=== PATIENT | male | born 1950 | race Hispanic/Latino ===

== ENCOUNTER 2019-04-24 09:44 | Inpatient (IN) | payer MEDICARE, OTHER ==
[~2019-04-24] VITALS: Ht 170.2 cm; Wt 79.7 kg
[2019-04-24 10:25] LABS: BASOPHILS % (AUTO) 0.8 % (0.0-5.0); EOSINOPHILS % (AUTO) 3.3 % (0.0-8.0); LYMPHOCYTES % (AUTO) 14.4 % (21.0-51.0); MEAN CORPUSCULAR HEMOGLOBIN 32.8 pg (27.0-33.0); MEAN CORPUSCULAR HGB CONC 34.3 g/dL (32.0-36.0); MEAN CORPUSCULAR VOLUME 95.5 fL (79-99); MONOCYTES % (AUTO) 9.1 % (3.0-13.0); NEUTROPHILS % (AUTO) 72.4 % (40.0-77.0); PLATELET COUNT (AUTO) 82 K/uL (130-400); RED BLOOD CELL COUNT(AUTO) 3.46 MIL/uL (4.50-6.20); RED CELL DISTRIBUTION WIDTH 14.8 % (11.0-15.5); WHITE BLOOD COUNT (AUTO) 5.2 K/uL (4.8-10.8)
[2019-04-24] MEDS ORDERED: LISINOPRIL 5 MG TABLET ONE (10:30)
[2019-04-24] MEDS ORDERED: FUROSEMIDE 10 MG/ML 4ML VIAL ONE (10:31)
[2019-04-24 10:36] LABS: CREATININE 1.6 mg/dL (0.5-1.5); POTASSIUM 4.8 mmol/L (3.5-5.1)
[2019-04-24 10:50] LABS: THYROID STIMULATING HORMONE 18.18 uIU/mL (0.36-3.74)
[2019-04-24 11:00] LABS: B-TYPE NATRIURETIC PEPTIDE 136 pg/mL (0-100)
[2019-04-24 11:35] LABS: PLATELET MORPHOLOGY COMMENT DECREASED
[2019-04-24] MEDS ORDERED: ENOXAPARIN SODIUM 40 MG/0.4 ML SYRINGE SQ ONE (11:42)
[2019-04-24] MEDS ORDERED: GLUCAGON 1MG KIT 1 MG ML IM PRN (13:00)
[2019-04-24] MEDS ORDERED: DEXTROSE 50%-WATER 50 ML DISP.SYRIN IV PRN (13:00)
[2019-04-24 15:17] VITALS: BP 187/102
[2019-04-24] MEDS: FUROSEMIDE 10 MG/ML 4ML VIAL IVP SCH ×2 (15:49→21:33)
[2019-04-24 16:20] VITALS: BP 158/97
[2019-04-24 17:30] LABS: CREATINE KINASE, TOTAL 362 U/L (21-232); MYOGLOBIN 245 ng/mL (10-92); TROPONIN I < 0.04 ng/mL (0.00-0.06)
[2019-04-24 19:25] VITALS: BP 148/93
[2019-04-24] MEDS ORDERED: METF-444 PO (21:16)
[2019-04-24] MEDS: INSULIN R PO SS1 SQ SCH (21:42)
[2019-04-24] MEDS ORDERED: COMPOUND IV REFRIGERATED 1 EACH IVSOLN MISC PRN (21:45)
[2019-04-24] MEDS ORDERED: VANCOMYCIN 1.25 GM in SODIUM CHLORIDE 0.9% 250 ML IV ONE (21:45)
[2019-04-24 22:38] LABS: CREATINE KINASE, TOTAL 354 U/L (21-232); MYOGLOBIN 265 ng/mL (10-92); TROPONIN I < 0.04 ng/mL (0.00-0.06)
[2019-04-24 23:39] VITALS: BP 148/98
--- NOTE | 2019-04-25 | NUR ---
Pt. instructed to be NPO at this time and demonstrated understanding.
[2019-04-25] MEDS: ZOSYN 3.375GM+NS 50ML 50 ML IV SCH ×3 (00:21→16:02)
[2019-04-25 03:47] VITALS: BP 154/89
[2019-04-25] MEDS ORDERED: PHARMACY COMMUNICATION MISC SCH (06:00)
[2019-04-25] MEDS: IPRATROPIUM/ALBUTEROL SULFATE 3 ML SOLUTION IH PRN ×2 (06:28→18:35)
[2019-04-25] MEDS ORDERED: VANCOMYCIN PROTOCOL PER PHARMACY IV SCH (06:30)
[2019-04-25] MEDS: INSULIN R PO SS1 SQ SCH ×4 (06:39→20:40)
[2019-04-25 07:00] VITALS: BP 175/90
[2019-04-25] MEDS: FUROSEMIDE 10 MG/ML 4ML VIAL IVP SCH ×3 (08:21→20:38)
[2019-04-25] MEDS: POTASSIUM CHLORIDE 20 MEQ ERTAB PO SCH ×2 (08:22→20:38)
[2019-04-25] MEDS ORDERED: VANCOMYCIN 1GM+NS 250ML 250 ML IV ONE (09:00)
[2019-04-25] MEDS: LISINOPRIL 20 MG TABLET PO SCH (09:00)
[2019-04-25 11:00] VITALS: BP 160/89
[2019-04-25 12:03] LABS: INR 1.22 (0.85-1.15); PARTIAL THROMBOPLASTIN TIME 34.2 SEC (26.3-35.5); PROTHROMBIN TIME 12.8 SEC (9.6-11.6)
[2019-04-25 12:04] LABS: CREATININE 1.7 mg/dL (0.5-1.5); POTASSIUM 4.7 mmol/L (3.5-5.1)
--- NOTE | 2019-04-25 13:12 | NUR ---
THORACENTESIS PT OFF THE FLOOR FOR THORACENTESIS AT THIS TIME. NURSING WILL CONTINUE TO FOLLOW UP.
--- NOTE | 2019-04-25 15:00 | NUR ---
U/S GD RT LUNG PIGTAIL CATHETER PLACEMENT PROCEDURE PERFORMED BY DR Tigre MASON. PUNCTURE SITE RT LATERAL BACK AND PATIENT TOLERATED PROCEDURE WELL. 10FR PIGTAIL CATHETER PLACED TO RT LUNG AND CONNECTED TO ATRIUM CHAMBER AT WATER SEAL. CATHETER SUTURED IN PLACE AND SECURED WITH STAY-FIX DRESSING. SPECIMEN COLLECTED AND SENT TO LAB. END OF PROCEDURE AT 1425. REPORT GIVEN TO Narcisa ALVAREZ RN AND PATIENT TRANSPORTED TO [facility] VIA BED AT 1500. AAO X3 WITH NO C/O PAIN.
[2019-04-25 15:39] LABS: AMYLASE,BODY FLUID 50 U/L
[2019-04-25 15:42] LABS: CHOLESTEROL,BODY FLUID < 35 mg/dL
[2019-04-25 16:00] VITALS: BP 159/79
[2019-04-25 16:41] LABS: APPEARANCE BODY FLUID CLOUDY (CLEAR); COLOR,BODY FLUID YELLOW (LT YELLOW); SPECIMENTYPE,BODY FLUID THORACENTESIS; TOTAL VOLUME,BODY FLUID 650 mL
[2019-04-25 16:42] LABS: BODY FLUID RBC 1605 /cu. mm.; BODY FLUID WBC 73 /cu. mm.
[2019-04-25 16:50] LABS: BF LYMPHOCYTE 37 %; BF MONOCYTE 16 %; BF OTHER CELLS 4
[2019-04-25 19:11] VITALS: BP 167/79
[2019-04-25] MEDS ORDERED: MORPHINE SULFATE 2 MG/ML 1ML SYG ONE (20:22)
--- NOTE | 2019-04-25 20:25 | NUR ---
DIV[employer]IED [employer] FARM[employer]ER Eunice Meza was called and notified regarding pt. chest tube drainage was 1750 after he went to the restroom .Initial level was @350 level and went to 2,100 ml and pt c/o chestpain.Received new order.Chest tube clamped at this time
[2019-04-25 23:28] VITALS: BP 145/82
[2019-04-26] MEDS: ZOSYN 3.375GM+NS 50ML 50 ML IV SCH ×3 (00:56→18:31)
[2019-04-26 03:55] VITALS: BP 129/74
[2019-04-26 04:24] LABS: BASOPHILS % (AUTO) 1.1 % (0.0-5.0); HEMATOCRIT 29.3 % (42-54); LYMPHOCYTES % (AUTO) 14.8 % (21.0-51.0); MEAN CORPUSCULAR HGB CONC 34.3 g/dL (32.0-36.0); MONOCYTES % (AUTO) 11.2 % (3.0-13.0); NEUTROPHILS % (AUTO) 68.9 % (40.0-77.0); PLATELET COUNT (AUTO) 64 K/uL (130-400); RED BLOOD CELL COUNT(AUTO) 3.05 MIL/uL (4.50-6.20); RED CELL DISTRIBUTION WIDTH 14.7 % (11.0-15.5); WHITE BLOOD COUNT (AUTO) 5.4 K/uL (4.8-10.8)
[2019-04-26 04:52] LABS: ALBUMIN 1.3 g/dL (3.5-5.0); BILIRUBIN,TOTAL 1.1 mg/dL (0.2-1.0); CREATININE 2.1 mg/dL (0.5-1.5); MAGNESIUM 1.5 mg/dL (1.80-2.40); POTASSIUM 3.7 mmol/L (3.5-5.1); TOTAL PROTEIN, SERUM 5.1 g/dL (6.0-8.3)
[2019-04-26] MEDS: INSULIN R PO SS1 SQ SCH ×4 (06:17→21:00)
[2019-04-26 07:00] VITALS: BP 149/79
--- NOTE | 2019-04-26 07:00 | NUR ---
Bedside report given to incoming NOD using SBAr all questions answered.Pigtail chesttube was unclamped at this time. already made rounds this morning and was updated with pt. condition.
[2019-04-26] MEDS: IPRATROPIUM/ALBUTEROL SULFATE 3 ML SOLUTION IH PRN ×2 (07:06→18:43)
[2019-04-26] MEDS: LISINOPRIL 20 MG TABLET PO SCH (08:36)
[2019-04-26] MEDS: POTASSIUM CHLORIDE 20 MEQ ERTAB PO SCH ×2 (08:37→21:38)
[2019-04-26] MEDS ORDERED: FUROSEMIDE 10 MG/ML 4ML VIAL IVP SCH (09:00)
[2019-04-26] MEDS ORDERED: VANCOMYCIN 1.5 GM in SODIUM CHLORIDE 0.9% 250 ML IV SCH (09:00)
[2019-04-26 11:00] VITALS: BP 134/71
--- NOTE | 2019-04-26 15:59 | NUR ---
DC PLAN VISITED WITH PATIENT. PATIENT LIVES WITH SPOUSE. INDEPENDENT ABLE TO PERFORM ADL'S. PATIENT HAS NO SERVICES OR DME'S. FEELS SAFE TO RETURN HOME. Addendum: 04/26/19 at 1600 by CESAR HERNANDEZ RN CM Amended: Links added.
[2019-04-26 16:00] VITALS: BP 123/77
[2019-04-26 19:42] VITALS: BP 146/86
--- NOTE | 2019-04-26 20:49 | NUR ---
CT RESULTS CALLED TO KEIRA HARRELL.
[2019-04-27] VITALS (7 sets, daily range): BP systolic 108–150; BP diastolic 63–90
[2019-04-27] MEDS: ZOSYN 3.375GM+NS 50ML 50 ML IV SCH ×4 (00:16→23:58)
--- NOTE | 2019-04-27 03:00 | NUR ---
Assumed care at this time,pt. with right pigtail chest tube Container #5 .attached to low intermittent suction.As per report pt. developed pneumothorax.Pt. appears calm and comfortable, he verbalized feeling better each day. to bedside.
[2019-04-27 03:55] LABS: BASOPHILS % (AUTO) 1.1 % (0.0-5.0); HEMATOCRIT 29.3 % (42-54); LYMPHOCYTES % (AUTO) 21.2 % (21.0-51.0); MEAN CORPUSCULAR HEMOGLOBIN 33.7 pg (27.0-33.0); MEAN CORPUSCULAR HGB CONC 34.8 g/dL (32.0-36.0); MONOCYTES % (AUTO) 12.6 % (3.0-13.0); NEUTROPHILS % (AUTO) 57.1 % (40.0-77.0); NUCLEATED RED BLOOD CELLS 0.1 % (0.0-0.19); PLATELET COUNT (AUTO) 55 K/uL (130-400); RED BLOOD CELL COUNT(AUTO) 3.02 MIL/uL (4.50-6.20); RED CELL DISTRIBUTION WIDTH 15.1 % (11.0-15.5); WHITE BLOOD COUNT (AUTO) 4.3 K/uL (4.8-10.8)
[2019-04-27 03:57] LABS: CREATININE 2.1 mg/dL (0.5-1.5); POTASSIUM 3.9 mmol/L (3.5-5.1)
[2019-04-27] MEDS: MORPHINE SULFATE 2 MG/ML 1ML SYG IVP PRN (04:47)
--- NOTE | 2019-04-27 05:45 | NUR ---
Patient sitting on chair during shift change. Denies sob.C/o mild discomfort to chest tube site. Denies the need for pain medication. Level 2/10. Changed out atrium and connected to low int suction per MD request. Patient draining serosanguineous fluid. i.s used while sitting. Reached 1000. 2+ pitting edema to BLE. Will continue to monitor. family at bedside
[2019-04-27] MEDS: INSULIN R PO SS1 SQ SCH ×4 (06:21→21:24)
[2019-04-27] MEDS: IPRATROPIUM/ALBUTEROL SULFATE 3 ML SOLUTION IH PRN ×2 (07:28→18:44)
[2019-04-27] MEDS: LISINOPRIL 20 MG TABLET PO SCH (08:33)
[2019-04-27] MEDS: POTASSIUM CHLORIDE 20 MEQ ERTAB PO SCH ×2 (08:34→21:18)
[2019-04-27] MEDS ORDERED: FUROSEMIDE 10 MG/ML 10ML VIAL IVP SCH (09:00)
[2019-04-27] MEDS: VANCOMYCIN 1GM+NS 250ML 250 ML IV SCH (11:59)
[2019-04-27] MEDS: FUROSEMIDE 10 MG/ML 2ML VIAL IVP SCH (21:16)
[2019-04-28] MEDS: MORPHINE SULFATE 2 MG/ML 1ML SYG IVP PRN ×2 (02:11→23:56)
[2019-04-28 03:56] VITALS: BP 111/60
[2019-04-28] MEDS: INSULIN R PO SS1 SQ SCH ×4 (05:54→21:20)
[2019-04-28] MEDS ORDERED: ALBUMIN (HUMAN) 25% 100 ML IV SCH (07:00)
[2019-04-28 07:40] VITALS: BP 135/87
[2019-04-28] MEDS: ZOSYN 3.375GM+NS 50ML 50 ML IV SCH ×3 (10:29→23:53)
[2019-04-28] MEDS: LISINOPRIL 20 MG TABLET PO SCH (10:29)
[2019-04-28] MEDS: POTASSIUM CHLORIDE 20 MEQ ERTAB PO SCH ×2 (10:30→20:02)
[2019-04-28] MEDS: FUROSEMIDE 10 MG/ML 2ML VIAL IVP SCH ×2 (10:30→20:02)
[2019-04-28 11:30] VITALS: BP 140/84
[2019-04-28] MEDS: VANCOMYCIN 1GM+NS 250ML 250 ML IV SCH (13:11)
[2019-04-28] MEDS: MIDODRINE HCL 5 MG TABLET PO SCH ×2 (13:22→20:03)
[2019-04-28] MEDS: OCTREOTIDE ACETATE 100 MCG/ML AMP SQ SCH ×2 (13:56→21:03)
[2019-04-28 15:30] VITALS: BP 157/76
[2019-04-28] MEDS: IPRATROPIUM/ALBUTEROL SULFATE 3 ML SOLUTION IH PRN ×2 (18:40→23:26)
[2019-04-28 19:00] VITALS: BP 153/73
[2019-04-28 23:00] VITALS: BP 117/57
[2019-04-29 03:00] VITALS: BP 114/64
[2019-04-29 03:13] LABS: BASOPHILS % (AUTO) 1.1 % (0.0-5.0); EOSINOPHILS % (AUTO) 9.8 % (0.0-8.0); HEMATOCRIT 28.6 % (42-54); LYMPHOCYTES % (AUTO) 17.5 % (21.0-51.0); MEAN CORPUSCULAR HEMOGLOBIN 33.2 pg (27.0-33.0); MEAN CORPUSCULAR HGB CONC 33.9 g/dL (32.0-36.0); MEAN CORPUSCULAR VOLUME 98.1 fL (79-99); MONOCYTES % (AUTO) 12.5 % (3.0-13.0); NEUTROPHILS % (AUTO) 59.1 % (40.0-77.0); NUCLEATED RED BLOOD CELLS 0.1 % (0.0-0.19); PLATELET COUNT (AUTO) 61 K/uL (130-400); RED BLOOD CELL COUNT(AUTO) 2.92 MIL/uL (4.50-6.20); RED CELL DISTRIBUTION WIDTH 14.9 % (11.0-15.5); WHITE BLOOD COUNT (AUTO) 4.5 K/uL (4.8-10.8)
[2019-04-29 03:28] LABS: CREATININE 2.4 mg/dL (0.5-1.5); MAGNESIUM 1.7 mg/dL (1.80-2.40); PHOSPHORUS 3.9 mg/dL (2.5-4.9); POTASSIUM 4.4 mmol/L (3.5-5.1)
[2019-04-29] MEDS: INSULIN R PO SS1 SQ SCH ×4 (06:26→21:57)
[2019-04-29] MEDS: IPRATROPIUM/ALBUTEROL SULFATE 3 ML SOLUTION IH PRN ×2 (06:26→18:30)
[2019-04-29] MEDS: OCTREOTIDE ACETATE 100 MCG/ML AMP SQ SCH ×3 (06:27→20:51)
[2019-04-29] MEDS: MIDODRINE HCL 5 MG TABLET PO SCH ×3 (06:27→20:50)
[2019-04-29 07:48] VITALS: BP 130/75
[2019-04-29] MEDS: MORPHINE SULFATE 2 MG/ML 1ML SYG IVP PRN (08:19)
[2019-04-29] MEDS: LISINOPRIL 20 MG TABLET PO SCH (08:43)
[2019-04-29] MEDS: FUROSEMIDE 10 MG/ML 2ML VIAL IVP SCH ×2 (08:43→20:50)
[2019-04-29] MEDS: POTASSIUM CHLORIDE 20 MEQ ERTAB PO SCH ×2 (08:44→20:50)
[2019-04-29] MEDS: ZOSYN 3.375GM+NS 50ML 50 ML IV SCH (08:44)
--- NOTE | 2019-04-29 10:43 | NUR ---
09:42- patient is asleep, per family members request to come back tomorrow. Addendum: 04/29/19 at 1045 by IVAN QUINTERO, PT PT Amended: Links added.
[2019-04-29] MEDS ORDERED: ONDANSETRON HCL 4 MG/2 ML VIAL ONE (11:01)
[2019-04-29] MEDS ORDERED: ONDANSETRON HCL 4 MG/2 ML VIAL IVP PRN ×2 (11:15→21:00)
[2019-04-29] MEDS ORDERED: METOCLOPRAMIDE 10 MG/2 ML VIAL IVP PRN (12:00)
[2019-04-29 12:26] VITALS: BP 112/77
[2019-04-29] MEDS ORDERED: MAGNESIUM 2GM PREMIX 50ML 50 ML IV PRN (13:15)
[2019-04-29] MEDS ORDERED: ALBUMIN (HUMAN) 25% 100 ML IV ONE (14:00)
[2019-04-29] MEDS ORDERED: ALBUMIN (HUMAN) 25% 100 ML IV SCH (14:28)
[2019-04-29] MEDS: CEFEPIME HCL 1 GM VIAL IVP SCH (16:30)
[2019-04-29 17:04] VITALS: BP 150/72
[2019-04-29 19:00] VITALS: BP 130/61
[2019-04-29] MEDS: HYDROMORPHONE HCL 0.5 MG/0.5 ML ML IVP PRN (20:51)
[2019-04-29] MEDS ORDERED: VANCOMYCIN 750MG + NS 250 ML IV SCH ×2 (21:00)
[2019-04-29 23:00] VITALS: BP 115/60
[2019-04-30] MEDS: CEFEPIME HCL 1 GM VIAL IVP SCH ×2 (01:02→15:18)
[2019-04-30] MEDS: IPRATROPIUM/ALBUTEROL SULFATE 3 ML SOLUTION IH PRN ×3 (01:09→18:30)
[2019-04-30 03:00] VITALS: BP 138/66
[2019-04-30 04:46] LABS: HEMATOCRIT 27.3 % (42-54); MEAN CORPUSCULAR HEMOGLOBIN 33.2 pg (27.0-33.0); MEAN CORPUSCULAR HGB CONC 33.7 g/dL (32.0-36.0); MEAN CORPUSCULAR VOLUME 98.3 fL (79-99); PLATELET COUNT (AUTO) 57 K/uL (130-400); RED BLOOD CELL COUNT(AUTO) 2.78 MIL/uL (4.50-6.20); WHITE BLOOD COUNT (AUTO) 4.3 K/uL (4.8-10.8)
[2019-04-30 04:59] LABS: ALBUMIN 1.7 g/dL (3.5-5.0); CREATININE 2.7 mg/dL (0.5-1.5); MAGNESIUM 2.2 mg/dL (1.80-2.40); POTASSIUM 5.2 mmol/L (3.5-5.1); TOTAL PROTEIN, SERUM 4.9 g/dL (6.0-8.3)
[2019-04-30] MEDS: OCTREOTIDE ACETATE 100 MCG/ML AMP SQ SCH ×3 (05:07→21:31)
[2019-04-30] MEDS: MIDODRINE HCL 5 MG TABLET PO SCH ×3 (05:07→21:31)
[2019-04-30] MEDS: INSULIN R PO SS1 SQ SCH ×4 (06:16→21:00)
[2019-04-30 07:27] VITALS: BP 158/83
[2019-04-30] MEDS: FUROSEMIDE 10 MG/ML 2ML VIAL IVP SCH ×2 (07:54→21:00)
[2019-04-30] MEDS: POTASSIUM CHLORIDE 20 MEQ ERTAB PO SCH ×2 (07:54→21:00)
--- NOTE | 2019-04-30 08:18 | NUR ---
MD ROUNDS DR. HANCOCK IN TO SEE PATIENT. NEW ORDERS RECEIVED TO BE CARRIED OUT.
[2019-04-30] MEDS: THIAMINE HCL 100 MG TABLET PO SCH (08:23)
[2019-04-30] MEDS: PRENATAL VITAMIN RX TABLET PO SCH (08:23)
--- NOTE | 2019-04-30 09:45 | NUR ---
RECEIVED CALL FROM DR. FERNANDEZ, UPDATED ON CONSULT. STATES WILL REVIEW CHART.
[2019-04-30 11:32] VITALS: BP 140/66
[2019-04-30 15:39] VITALS: BP 145/79
--- NOTE | 2019-04-30 15:39 | NUR ---
RDSCREEN - LOS X 6 Pt tolerating 75gm CCD with no report of GI distress and PO intake at 100%. Pt with lactose intolerance. Pt and family with questions on dietary recommendations. RD discussed Heart Healthy, Diabetic diet. Pt verbalized understanding. Pt LBM 04/29/19. Pt monitored labs: K 5.2, BUN 45, Cr 2.7, GFR 25, Glu 166, Ca 7.2, AST 38, Alb 1.7. RD to continue to monitor. Please notify RD as nutritional concerns arise. Thank you. Addendum: 04/30/19 at [address] Amended: Links added.
[2019-04-30] MEDS: HYDROMORPHONE HCL 0.5 MG/0.5 ML ML IVP PRN (15:52)
--- NOTE | 2019-04-30 16:20 | NUR ---
10 FR. RIGHT LUNG PIGTAIL CATHETER DISCONTINUED INFORMED PATIENT OF PROCEDURE. REMOVED 1 SUTURED FROM SITE, RIGHT LUNG 10 FR. PIGTAIL CATHETER DISCONTINUED PER MD ORDERS. PATIENT TOLERATED WELL. DRESSING APPLIED. NO BLEEDING NOTED. REPORT GIVEN TO JOHN CONRAD RN.
[2019-04-30 20:32] VITALS: BP 143/90
[2019-05-01 00:24] VITALS: BP 179/88
[2019-05-01] MEDS: CEFEPIME HCL 1 GM VIAL IVP SCH ×2 (02:51→15:04)
[2019-05-01 04:55] VITALS: BP 143/72
[2019-05-01] MEDS: INSULIN R PO SS1 SQ SCH ×4 (05:52→21:00)
[2019-05-01] MEDS: OCTREOTIDE ACETATE 100 MCG/ML AMP SQ SCH ×3 (06:30→21:30)
[2019-05-01] MEDS ORDERED: COMPOUND IV MISC 1 EACH IVSOLN MISC PRN (06:45)
[2019-05-01 07:01] LABS: MAGNESIUM 2.1 mg/dL (1.80-2.40); POTASSIUM 4.9 mmol/L (3.5-5.1)
[2019-05-01 07:02] LABS: BILIRUBIN,URINE Negative (NEGATIVE); COLOR,URINE Yellow (YELLOW); GLUCOSE, URINE (UA) Negative (NEGATIVE); KETONES,URINE Negative (NEGATIVE); LEUKOCYTE ESTERASE ,URINE Negative (NEGATIVE); NITRATE,URINE Negative (NEGATIVE); OCCULT BLOOD,URINE Trace (NEGATIVE); PROTEIN,URINE 300 mg/dL (NEGATIVE)
[2019-05-01 07:06] LABS: APPEARANCE,URINE CLEAR (CLEAR)
[2019-05-01 07:15] LABS: BACTERIA,URINE None Seen /HPF (None Seen); RBC,URINE 0-1 /HPF (0-1); SQUAMOUS EPITHELIAL CELL,UR None Seen /HPF (0-2); WBC,URINE None Seen /HPF (0-1)
[2019-05-01 07:39] VITALS: BP 144/78
[2019-05-01] MEDS: MIDODRINE HCL 5 MG TABLET PO SCH (08:31)
[2019-05-01] MEDS: POTASSIUM CHLORIDE 20 MEQ ERTAB PO SCH ×2 (08:31→21:30)
[2019-05-01] MEDS: PRENATAL VITAMIN RX TABLET PO SCH (08:31)
[2019-05-01] MEDS: THIAMINE HCL 100 MG TABLET PO SCH (08:31)
[2019-05-01] MEDS: FUROSEMIDE 10 MG/ML 2ML VIAL IVP SCH ×2 (08:32→21:30)
[2019-05-01] MEDS ORDERED: IRON SUCROSE COMPLEX 100 MG in SODIUM CHLORIDE 0.9% 50 ML IV SCH (09:00)
[2019-05-01 11:36] VITALS: BP 162/86
[2019-05-01 15:11] VITALS: BP 156/87
[2019-05-01 20:12] VITALS: BP 164/78
[2019-05-02 00:05] VITALS: BP 141/89
[2019-05-02] MEDS: CEFEPIME HCL 1 GM VIAL IVP SCH (03:12)
[2019-05-02 03:57] VITALS: BP 156/79
[2019-05-02 04:31] LABS: CREATININE 1.9 mg/dL (0.5-1.5); MAGNESIUM 1.8 mg/dL (1.80-2.40); POTASSIUM 4.7 mmol/L (3.5-5.1)
[2019-05-02] MEDS: OCTREOTIDE ACETATE 100 MCG/ML AMP SQ SCH (05:57)
[2019-05-02] MEDS: INSULIN R PO SS1 SQ SCH (06:01)
[2019-05-02 08:00] VITALS: BP 149/79
--- NOTE | 2019-05-02 08:00 | NUR ---
AM ASSESSMENT PT SITTING IN CHAIR, WATCHING TV. SPOUSE @ BEDSIDE. A/O X 3. NO SOB. NO DISTRESS NOTED. DENIES CHEST PAIN OR DISCOMFORT. DENIES PALPITATIONS. TELE: SR 60-70s. DENIES N/V AND/OR DIARRHEA. UP W/STD BY ASSIST. INSTRUCTED TO CALL FOR ASSISTANCE. CALL ROBERTO W/IN REACH. PENDING TO BE DISCHARGED HOME TODAY.
[2019-05-02] MEDS: POTASSIUM CHLORIDE 20 MEQ ERTAB PO SCH (08:14)
[2019-05-02] MEDS: FUROSEMIDE 10 MG/ML 2ML VIAL IVP SCH (08:14)
[2019-05-02] MEDS: THIAMINE HCL 100 MG TABLET PO SCH (08:14)
[2019-05-02] MEDS: PRENATAL VITAMIN RX TABLET PO SCH (08:14)
--- NOTE | 2019-05-02 10:55 | NUR ---
DISCHARGE VERBAL & WRITTEN DISCHARGE INSTRUCTIONS REVIEWED & GIVEN TO PT & FAMILY. QUESTIONS ENCOURAGED & CLARIFIED. PROPER CARE & MGT OF CHF REVIEWED. PT TO CONTINUE TAKING HOME MEDICATIONS. F/U W/DR WINKLER THIS TUESDAY. TELE ALEC REMOVED. IV DISCONTINUED. PT & FAMILY TO GATHER PERSONAL BELONGINGS. WILL NOTIFY STAFF WHEN READY TO BE TAKEN TO PRIVATE VEHICLE.
--- NOTE | 2019-05-02 11:40 | NUR ---
DISCHARGE PT TAKEN TO PRIVATE VEHICLE VIA WC BY Terry MARTELL PCP, ACCOMPANIED BY FAMILY. NO DISTRESS NOTED.
== END 2019-05-02 11:40 | disposition home or self-care (01) | DRG 432 ==
LOC: EDH 09:44 → EDHIP 10:24 → 2DH 15:27
PROVIDERS: ADMIT Family Medicine; ATTEND Family Medicine
PROC: 0W9930Z Drainage of Right Pleural Cavity with Drainage Device, Percutaneous Approach (ICD-10-PCS; principal; 2019-04-25)
DX: K74.60 Unspecified cirrhosis of liver (principal); J18.1 Lobar pneumonia, unspecified organism; J90 Pleural effusion, not elsewhere classified; R18.8 Other ascites; K76.6 Portal hypertension; N17.9 Acute kidney failure, unspecified; J93.9 Pneumothorax, unspecified; J94.8 Other specified pleural conditions; I35.0 Nonrheumatic aortic (valve) stenosis; E03.9 Hypothyroidism, unspecified; D69.6 Thrombocytopenia, unspecified; N18.3 Chronic kidney disease, stage 3 (moderate); E11.22 Type 2 diabetes mellitus with diabetic chronic kidney disease; I12.9 Hypertensive chronic kidney disease with stage 1 through stage 4 chronic kidney disease, or unspecified chronic kidney disease; M60.9 Myositis, unspecified; D64.9 Anemia, unspecified; D73.1 Hypersplenism; E11.21 Type 2 diabetes mellitus with diabetic nephropathy; E78.5 Hyperlipidemia, unspecified; E87.5 Hyperkalemia; E87.6 Hypokalemia; L89.90 Pressure ulcer of unspecified site, unspecified stage; Z79.4 Long term (current) use of insulin
CPT/HCPCS: 10030; 36415; 71045; 71250; 76700; 76942; 78580; 80048; 80053; 80061; 80202; 81001; 82105; 82150; 82465; 82550; 82570; 82948; 83615; 83735; 83874; 83880; 83986; 84100; 84157; 84439; 84443; 84484; 85025; 85027; 85378; 85610; 85730; 87088; 88108; 88305; 89051; 93005; 93306; 94640; 94664; 97039; A7048; A9540; G0378; J0692; J1170; J1650; J1756; J1815; J1940; J2354; J2405; J2543; J3370; J3475; J7030; J7070; P9046

== ENCOUNTER 2019-07-01 11:21 | Observation (INO) | payer OTHER ==
[~2019-07-01] VITALS: Ht 170.2 cm; Wt 79.5 kg
[~2019-07-01 11:21] MED LIST: METF-444 PO
[2019-07-01 12:55] LABS: BASOPHILS % (AUTO) 1.2 % (0.0-5.0); EOSINOPHILS % (AUTO) 5.2 % (0.0-8.0); HEMATOCRIT 29.1 % (42-54); LYMPHOCYTES % (AUTO) 17.7 % (21.0-51.0); MEAN CORPUSCULAR HGB CONC 34.2 g/dL (32.0-36.0); MEAN CORPUSCULAR VOLUME 99.5 fL (79-99); MONOCYTES % (AUTO) 9.3 % (3.0-13.0); NEUTROPHILS % (AUTO) 66.6 % (40.0-77.0); NUCLEATED RED BLOOD CELLS 0.1 % (0.0-0.19); PLATELET COUNT (AUTO) 56 K/uL (130-400); RED BLOOD CELL COUNT(AUTO) 2.92 MIL/uL (4.50-6.20); RED CELL DISTRIBUTION WIDTH 15.4 % (11.0-15.5); WHITE BLOOD COUNT (AUTO) 3.9 K/uL (4.8-10.8)
[2019-07-01 12:59] LABS: CREATININE 2.6 mg/dL (0.5-1.5); POTASSIUM 4.9 mmol/L (3.5-5.1)
[2019-07-01 13:02] LABS: INR 1.26 (0.85-1.15); PROTHROMBIN TIME 13.1 SEC (9.6-11.6)
[2019-07-01 13:04] LABS: ALBUMIN 1.6 g/dL (3.5-5.0); BILIRUBIN,TOTAL 0.8 mg/dL (0.2-1.0); TOTAL PROTEIN, SERUM 5.6 g/dL (6.0-8.3)
[2019-07-01] MEDS ORDERED: GLUCAGON 1MG KIT 1 MG ML IM PRN (14:45)
[2019-07-01] MEDS ORDERED: DEXTROSE 50%-WATER 50 ML DISP.SYRIN IV PRN (14:45)
[2019-07-01 15:34] VITALS: BP 163/81
--- NOTE | 2019-07-01 15:38 | NUR ---
ARRIVAL TO FLOOR PT IS AAOX4 DENIES CP DENIES SOB AT THIS TIME WHILE AT REST. NO COMPLAINTS. BREATHING PATTERN IS EVEN AND UNLABORED WHILE AT REST. ARRIVED WITH ORDERS, FAMILY IS AT BEDSIDE, CALL LIGHT WITHIN REACH.
[2019-07-01] MEDS ORDERED: FURO40TA7 PO (15:42)
[2019-07-01] MEDS ORDERED: RIFA550T PO (15:42)
[2019-07-01] MEDS ORDERED: CARV25TA PO (15:42)
[2019-07-01] MEDS ORDERED: HYDR-4154 PO (15:42)
[2019-07-01] MEDS ORDERED: BUDE10.2 IH (15:42)
[2019-07-01] MEDS ORDERED: LACT10SO32 PO (15:42)
[2019-07-01] MEDS: CEFTRIAXONE SODIUM 1 GM IVP SCH (16:01)
[2019-07-01] MEDS: FUROSEMIDE 10 MG/ML 2ML VIAL IVP SCH ×3 (16:03→22:35)
--- NOTE | 2019-07-01 16:24 | NUR ---
DR Narcisa CONRAD AWARE OF CONSULT
[2019-07-01] MEDS: INSULIN R PO SS1 SQ SCH ×2 (16:43→22:34)
--- NOTE | 2019-07-01 18:46 | NUR ---
RENAL US AT BEDSIDE
[2019-07-01] MEDS: IPRATROPIUM/ALBUTEROL SULFATE 3 ML SOLUTION IH SCH ×2 (18:49→23:13)
[2019-07-01 20:44] VITALS: BP 131/68
[2019-07-01] MEDS: INSULIN GLARGINE 100 UNITS/ML 10 ML VIAL SQ SCH (20:44)
[2019-07-02] VITALS (16 sets, daily range): BP systolic 99–172; BP diastolic 56–84
--- NOTE | 2019-07-02 03:22 | NUR ---
PATIENT RESTING IN BED. NO C/O SOB AFTER RECEIVING NEB TX. 02 AT 2L, NC. TOLERATING WELL. URINATING WITH THE LASIX. 2+ PITTING EDEMA TO BLE. INCREASED BLOOD SUGARS COVERED USING INSULIN SS.
--- NOTE | 2019-07-02 04:40 | NUR ---
PATIENT STATED HE HAD A HEADACHE AND FELT WEAK. PATIENT SWEATING. S/S OF HYPOGLYCEMIA. BS CHECKED 64. JUICE GIVEN WILL RECHECK BLOOD SUGAR. PATIENT IS ON FLUID RESTRICTION DUE TO EDEMA AND NPO FOR A POSSIBLE PROCEDURE. WILL CONTINUE TO MONITOR
--- NOTE | 2019-07-02 05:53 | NUR ---
BLOOD SUGAR RECHECK BS -91
[2019-07-02] MEDS: INSULIN R PO SS1 SQ SCH (05:54)
[2019-07-02] MEDS: IPRATROPIUM/ALBUTEROL SULFATE 3 ML SOLUTION IH SCH ×3 (06:13→18:05)
--- NOTE | 2019-07-02 07:30 | NUR ---
ASSESSMENT ENCOUNTERED PT A&OX3, CALM COOPERATIVE AND DOES NOT APPEAR TO BE IN ANY DISTRESS NOR ANY NEURO DEFICITS PRESENT. PT DENIES PAIN, SOB, NAUSEA BUT DOES C/O DYSPNEA ON EXERTION. PT IS AMBULATORY,GAIT STEADY AND STRONG WITH STAND BY ASSIST. PT IS PENDING THORACENTESIS BY I.R. CALL LIGHT WITHIN REACH, FAMILY AT BEDSIDE.
--- NOTE | 2019-07-02 08:55 | NUR ---
U/S GD RIGHT THORACENTESIS PROCEDURE PERFORMED BY DR HUGHES. PUNCTURE SITE RIGHT POSTERIOR BACK AND PATIENT TOLERATED PROCEDURE WELL. TOTAL REMOVED 2.0 LITERS OF CLOUDY PETERS FLUID. END OF PROCEDURE AT 0910. CATHETER REMOVED AND DRESSING APPLIED. NO BLEEDING NOTED. POST CHEST X-RAY TAKEN AND READ BY DR HUGHES. NO PNEUMOTHORAX SEEN. CALLED REPORT TO 2ND FLOOR NURSE, AMARILYS MURRAY. TRANSFERRED PATIENT TO ROOM 232 VIA W/C AT 0930. PT STABLE, AAO X3 WITH NO C/O PAIN.
[2019-07-02] MEDS ORDERED: DEXTROSE 50%-WATER 50 ML DISP.SYRIN IV PRN (11:45)
[2019-07-02] MEDS ORDERED: GLUCAGON 1MG KIT 1 MG ML IM PRN (11:45)
[2019-07-02 13:00] LABS: APPEARANCE BODY FLUID SLIGHTLY CLOUDY (CLEAR); COLOR,BODY FLUID YELLOW (LT YELLOW); SPECIMENTYPE,BODY FLUID THORACENTESIS
[2019-07-02 13:01] LABS: TOTAL VOLUME,BODY FLUID 2000 mL
[2019-07-02 13:02] LABS: BODY FLUID RBC 3050 /cu. mm.; BODY FLUID WBC 111 /cu. mm.
[2019-07-02 13:05] LABS: BF EOSINOPHIL 1 %; BF LYMPHOCYTE 49 %; BF MESOTHELIAL 40 %; BF MONOCYTE 6 %
[2019-07-02] MEDS: INSULIN GLARGINE 100 UNITS/ML 10 ML VIAL SQ SCH ×2 (13:05→22:03)
[2019-07-02] MEDS: INSULIN HUMULIN R 100 UNIT/ML 3ML SQ SCH ×2 (13:08→21:00)
[2019-07-02] MEDS: CEFTRIAXONE SODIUM 1 GM IVP SCH (13:10)
[2019-07-02] MEDS: FUROSEMIDE 10 MG/ML 2ML VIAL IVP SCH ×2 (13:10→21:57)
[2019-07-02] MEDS: CARVEDILOL 25 MG TABLET PO SCH ×2 (13:11→20:38)
[2019-07-02] MEDS: HYDRALAZINE HCL 25 MG TABLET PO SCH ×2 (13:11→20:38)
--- NOTE | 2019-07-02 16:19 | NUR ---
RD NOTIFICATION DX: SOB, PLEURAL EFFUSION. DIET: 75GM CCD. PO 100% AND HAS GREAT APPETITE PER PT. SKIN INTACT, 3+ PITTING EDEMA. LBM: 07/02. NO NAUSEA, VOMITING OR DIARRHEA [id number]. PT TOLERATING DIET WELL. KEEPS A LOG OF ALL THE FOODS PT CONSUMES IN ONE DAY. PT IS WILLING TO MAKE LIFESTYLE AND DIET CHANGES TO IMPROVE HIS HEALTH AND FOR HIS FAMILY. WAS NOT PRESENT DURING TIME OF INTERVIEW. PT ASKED IF I CAN COME BACK WHEN IS PRESENT FOR ANY ADDITIONAL QUESTIONS REGARDING HIS DIET THAT SHE MAY HAVE. PT ASKED QUESTIONS AND VERBALIZED UNDERSTANDING. PT WAS LEFT WITH HANDOUTS TO TAKE HOME AND USE REFERENCE. RD RECOMMENDS TO CHANGE DIET ORDER TO RENAL NON-DIALYSIS. OFFER NEPRO ONCE FOR PT TO TRY. RD PROVIDED RENAL NON-DIALYSIS, CIRRHOSIS, DM, FLUID RESTRICTION DIET AND NUTRITION EDUCATION. RD WILL CONTINUE TO MONITOR AND FOLLOW UP NEEDED. THANK YOU. Addendum: 07/02/19 at [address] Amended: Links added.
--- NOTE | 2019-07-02 16:26 | NUR ---
DIET EDUCATION RD PROVIDED RENAL NON-DIALYSIS, DM, CIRRHOSIS, FLUID RESTRICTION DIET AND NUTRITION EDUCATION. PT VERBALIZED UNDERSTANDING AND WAS LEFT WITH HANDOUTS TO TAKE HOME. PT ASKED IF I CAN COME BACK TOMORROW WHEN IS PRESENT TO ANSWER AND QUESTIONS SHE MAY HAVE REGARDING HIS DIET. KEEPS A DIARY OF FOODS PT CONSUMES IN ONE DAY. PT IS WILLING TO MAKE DIET AND LIFESTYLE CHANGES FOR HIS HEALTH AND FOR HIS FAMILY. Addendum: 07/02/19 at [address] Amended: Links added.
[2019-07-02] MEDS ORDERED: ACETAMINOPHEN 325 MG TAB ONE (18:39)
[2019-07-02] MEDS ORDERED: RIFAXIMIN 550 MG TABLET PO SCH (21:00)
[2019-07-02] MEDS ORDERED: THIAMINE HCL 100 MG/ML 2ML VIAL IVP SCH (21:00)
[2019-07-02] MEDS ORDERED: LACTULOSE 20 GM/30 ML UDCUP PO SCH (21:00)
--- NOTE | 2019-07-02 22:40 | NUR ---
PT IV INFILTRATED. REMOVED AT THIS TIME. PT STATES NO DISTRESS. STABLE.
[2019-07-03 03:25] VITALS: BP 131/68
[2019-07-03 04:20] LABS: % IRON SATURATION 23.6 % (30-44)
[2019-07-03 04:31] LABS: THYROID STIMULATING HORMONE 13.74 uIU/mL (0.36-3.74); URIC ACID 9.2 mg/dL (2.6-7.2)
[2019-07-03] MEDS: INSULIN HUMULIN R 100 UNIT/ML 3ML SQ SCH (05:45)
[2019-07-03] MEDS: INSULIN GLARGINE 100 UNITS/ML 10 ML VIAL SQ SCH (06:28)
--- NOTE | 2019-07-03 08:02 | NUR ---
DISCHARGE ENCOUNTERED PT AMBULATING IN ROOM, GAIT STEADY AND STRONG WITH STAND BY ASSIST, ON ROOM AIR, A&OX3, CALM COOPERATIVE AND DOES NOT APPEAR TO BE IN ANY DISTRESS NOR ANY NEURO DEFICITS PRESENT, PT DENIES PAIN, SOB, NAUSEA, DIZZINESS OR LIGHTHEADEDNESS, DR WINKLER ROUNDED AND VERBAL ORDER FOR DISCHARGE GIVEN TO PAD ASSEMBLER AMARILYS SALCIDO, DISCHARGE INSTRUCTIONS GIVEN, PIV REMOVED AND INTACT, DISCHARGED HOME TO FAMILY VEHICLE VIA WHEELCHAIR.
[2019-07-03] MEDS ORDERED: FUROSEMIDE 40 MG TABLET PO SCH (09:00)
[2019-07-03] MEDS ORDERED: SYMBICORT 160-4.5 MCG INHALER IH SCH (09:00)
[2019-07-04 08:12] LABS: HEPATITIS A ANTIBODY IGM Negative (Negative); HEPATITIS B CORE IGM Negative (Negative); HEPATITIS Bs ANTIGEN SCREEN P Negative (Negative)
== END 2019-07-03 08:03 | disposition home or self-care (01) ==
LOC: EDH 11:21 → EDHIP 14:17 → 2AH 15:41
PROVIDERS: ADMIT Family Medicine; ATTEND Family Medicine
DX: J90 Pleural effusion, not elsewhere classified (principal); J94.8 Other specified pleural conditions; E11.22 Type 2 diabetes mellitus with diabetic chronic kidney disease; I12.9 Hypertensive chronic kidney disease with stage 1 through stage 4 chronic kidney disease, or unspecified chronic kidney disease; N18.9 Chronic kidney disease, unspecified; K74.69 Other cirrhosis of liver; K76.6 Portal hypertension; N17.9 Acute kidney failure, unspecified; E87.1 Hypo-osmolality and hyponatremia; D69.6 Thrombocytopenia, unspecified; D64.9 Anemia, unspecified; R18.8 Other ascites; R94.31 Abnormal electrocardiogram [ECG] [EKG]; Z79.899 Other long term (current) drug therapy; Z79.4 Long term (current) use of insulin
CPT/HCPCS: 32555; 36415 ×2; 71045 ×2; 71250; 76770; 80053; 80074; 82728; 82948 ×8; 83540; 83550; 84443; 84550; 85025; 85610; 85730; 86334; 87071; 87205; 88108; 88305; 89051; 93005; 94640 ×6; 94664; 96372 ×3; 96374; 96375 ×2; 96376 ×2; 99284; G0378 ×40; J0696 ×2; J1815 ×2; J1940 ×4; J3411

== ENCOUNTER 2019-08-17 08:06 | Day surgery (SDC) | payer OTHER ==
[~2019-08-17] VITALS: Ht 170.2 cm; Wt 93.0 kg
[~2019-08-17 08:06] MED LIST changes: +BUDE10.2 IH; +CARV25TA PO; +FURO40TA7 PO; +HYDR-4154 PO; +LACT10SO32 PO; -METF-444 PO; +RIFA550T PO; +SODIUM CHLORIDE 0.9% 1000ML 1,000 ML IV ONE
[2019-08-17 09:10] VITALS: BP 112/58
[2019-08-17] MEDS ORDERED: PROPOFOL 10 MG/ML 20ML VIAL IV ONE ×2 (09:27→09:28)
[2019-08-17] MEDS ORDERED: CHOL100040 PO (09:41)
[2019-08-17] MEDS ORDERED: INSU100I26 SQ (09:41)
[2019-08-17] MEDS ORDERED: LEVO75TA10 PO (09:41)
[2019-08-17] MEDS ORDERED: VIT-7 PO (09:41)
[2019-08-17] MEDS ORDERED: FERS325 PO (09:41)
[2019-08-17] MEDS ORDERED: ALLO100T PO (09:41)
[2019-08-17 09:51] VITALS: BP 92/50
[2019-08-17 09:56] VITALS: BP 90/51
[2019-08-17 10:01] VITALS: BP 100/55
[2019-08-17 10:06] VITALS: BP 102/51
[2019-08-17 10:12] VITALS: BP 103/53
== END 2019-08-17 10:30 | disposition home or self-care (01) ==
LOC: DAH 08:06 → ENDO 08:06
PROVIDERS: ATTEND Internal Medicine
DX: Z12.11 Encounter for screening for malignant neoplasm of colon (principal); K29.50 Unspecified chronic gastritis without bleeding; D12.5 Benign neoplasm of sigmoid colon; K64.8 Other hemorrhoids; K57.30 Diverticulosis of large intestine without perforation or abscess without bleeding; K74.60 Unspecified cirrhosis of liver; I11.0 Hypertensive heart disease with heart failure; I50.9 Heart failure, unspecified; E11.9 Type 2 diabetes mellitus without complications; Z79.4 Long term (current) use of insulin; Z79.899 Other long term (current) drug therapy; Z83.3 Family history of diabetes mellitus; Z82.49 Family history of ischemic heart disease and other diseases of the circulatory system
CPT/HCPCS: 43239; 45385; 82948 ×2; 88305; A4215; A4221; A4222; A4223; A4606; A4620; A4663; J2704 ×2; J7030

== ENCOUNTER 2020-04-12 08:47 | Inpatient (IN) | payer OTHER ==
[2020-04-12] MEDS: ACETYLCYSTEINE 600 MG CAPSULE PO SCH (03:00)
[~2020-04-12 08:47] MED LIST changes: +ALLO100T PO; +CHOL100040 PO; +FERS325 PO; +INSU100I26 SQ; +LEVO75TA10 PO; -SODIUM CHLORIDE 0.9% 1000ML 1,000 ML IV ONE; +VIT-7 PO
[2020-04-12 09:34] LABS: BASOPHILS % (AUTO) 0.4 % (0.0-5.0); EOSINOPHILS % (AUTO) 0.7 % (0.0-8.0); HEMATOCRIT 27.2 % (42-54); LYMPHOCYTES % (AUTO) 5.5 % (21.0-51.0); MEAN CORPUSCULAR HEMOGLOBIN 33.2 pg (27.0-33.0); MEAN CORPUSCULAR HGB CONC 33.5 g/dL (32.0-36.0); MEAN CORPUSCULAR VOLUME 99.3 fL (79-99); MONOCYTES % (AUTO) 6.1 % (3.0-13.0); NEUTROPHILS % (AUTO) 86.3 % (40.0-77.0); PLATELET COUNT (AUTO) 66 K/uL (130-400); RED BLOOD CELL COUNT(AUTO) 2.74 MIL/uL (4.50-6.20); RED CELL DISTRIBUTION WIDTH 15.1 % (11.0-15.5); WHITE BLOOD COUNT (AUTO) 10.4 K/uL (4.8-10.8)
[2020-04-12 09:43] LABS: PLATELET MORPHOLOGY COMMENT MARKED DECREASE
[2020-04-12 09:44] LABS: POTASSIUM 4.9 mmol/L (3.5-5.1)
[2020-04-12 09:45] LABS: INR 1.22 (0.85-1.15); PARTIAL THROMBOPLASTIN TIME 32.4 SEC (26.3-35.5); PROTHROMBIN TIME 13.1 SEC (9.6-11.6)
[2020-04-12 09:47] LABS: BILIRUBIN,TOTAL 1.5 mg/dL (0.2-1.0); TOTAL PROTEIN, SERUM 5.7 g/dL (6.0-8.3)
[2020-04-12 09:50] LABS: ABG BASE EXCESS -1.4 mmol/L (-2.0-3.0); ABG HCO3 21.2 mmol/L (21.0-28.0); ABG OXYGEN SATURATION 93.5 % (95.0-99.0); ABG PCO2 29 mmHg (35-48)
[2020-04-12] MEDS ORDERED: ACETAMINOPHEN 325 MG TAB PO PRN ×2 (13:00)
[2020-04-12] MEDS ORDERED: ERGOCALCIFEROL (VITAMIN D2) 50,000 UNIT CAPSULE PO SCH (13:00)
[2020-04-12] MEDS ORDERED: DIPHENHYDRAMINE HCL 25 MG CAPSULE PO PRN (13:00)
[2020-04-12] MEDS ORDERED: GUAIFENESIN-DM 200/20 MG 10 ML PO PRN (13:00)
[2020-04-12] MEDS ORDERED: GLUCAGON 1MG KIT 1 MG ML IM PRN (13:00)
[2020-04-12] MEDS ORDERED: NITROGLYCERIN 0.4 MG SL TAB SL PRN (13:00)
[2020-04-12] MEDS ORDERED: DiphenhydrAMINE HCL 50 MG/ML VIAL IV PRN (13:00)
[2020-04-12] MEDS ORDERED: MAG HYDROX/AL HYDROX/SIMETH ES 30 ML SUSP UDCUP PO PRN (13:00)
[2020-04-12] MEDS ORDERED: ONDANSETRON HCL 4 MG/2 ML VIAL IV PRN (13:00)
[2020-04-12] MEDS ORDERED: HYDRALAZINE HCL 20 MG/ML VIAL IV PRN (13:00)
[2020-04-12] MEDS ORDERED: DEXTROSE 50%-WATER 50 ML DISP.SYRIN IV PRN (13:00)
[2020-04-12] MEDS ORDERED: ASCORBIC ACID 500 MG TAB ONE (15:11)
[2020-04-12] MEDS ORDERED: METHYLPREDNISOLONE SOD SUCC 40MG/ML 1ML ONE ×2 (15:11→20:27)
[2020-04-12] MEDS ORDERED: LACTULOSE 20 GM/30 ML UDCUP ONE ×2 (15:11→20:27)
[2020-04-12] MEDS ORDERED: DOXYCYCLINE HYCLATE 100 MG TABLET PO ONE ×2 (15:11→15:18)
[2020-04-12] MEDS ORDERED: CEFTRIAXONE SODIUM 1 GM ONE (15:12)
[2020-04-12] MEDS ORDERED: ERGOCALCIFEROL (VITAMIN D2) 50,000 UNIT CAPSULE ONE (15:12)
[2020-04-12] MEDS ORDERED: HEPARIN SODIUM 5000UNIT/ML 1ML VIAL ONE ×2 (15:12→20:27)
[2020-04-12] MEDS ORDERED: BENZONATATE 100 MG CAPSULE PO ONE ×2 (15:12→20:28)
[2020-04-12] MEDS ORDERED: ACETAMINOPHEN 325 MG TAB ONE (15:51)
[2020-04-12 17:36] LABS: % IRON SATURATION 28.3 % (30-44)
[2020-04-12] MEDS: INSULIN HUMULIN R 100 UNIT/ML 3ML SQ SCH (21:00)
[2020-04-12] MEDS: BENZONATATE 100 MG CAPSULE PO SCH (21:00)
[2020-04-12] MEDS: METHYLPREDNISOLONE SOD SUCC 40MG/ML 1ML IVP SCH (21:00)
[2020-04-12] MEDS: HEPARIN SODIUM 5000UNIT/ML 1ML VIAL SQ SCH (21:00)
[2020-04-12] MEDS ORDERED: INSULIN HUMULIN R 100 UNIT/ML 3ML ONE (21:20)
[2020-04-12] MEDS: LACTULOSE 20 GM/30 ML UDCUP PO SCH (21:30)
[2020-04-13] MEDS: DOXYCYCLINE HYCLATE 100 MG TABLET PO SCH ×2 (03:00→20:30)
[2020-04-13] MEDS: CEFTRIAXONE SODIUM 1 GM IVP SCH ×2 (03:00→13:00)
[2020-04-13] MEDS: LACTULOSE 20 GM/30 ML UDCUP PO SCH ×4 (03:00→18:45)
[2020-04-13] MEDS ORDERED: DOXYCYCLINE HYCLATE 100 MG TABLET PO ONE ×3 (03:09→20:23)
[2020-04-13] MEDS ORDERED: CEFTRIAXONE SODIUM 1 GM ONE ×2 (03:09→11:11)
[2020-04-13] MEDS ORDERED: LACTULOSE 20 GM/30 ML UDCUP ONE ×3 (03:09→17:24)
[2020-04-13 04:15] LABS: BASOPHILS % (AUTO) 0.2 % (0.0-5.0); HEMATOCRIT 25.2 % (42-54); LYMPHOCYTES % (AUTO) 7.6 % (21.0-51.0); MEAN CORPUSCULAR HEMOGLOBIN 33.3 pg (27.0-33.0); MEAN CORPUSCULAR HGB CONC 33.3 g/dL (32.0-36.0); NEUTROPHILS % (AUTO) 90.4 % (40.0-77.0); PLATELET COUNT (AUTO) 61 K/uL (130-400); RED BLOOD CELL COUNT(AUTO) 2.52 MIL/uL (4.50-6.20); RED CELL DISTRIBUTION WIDTH 15.2 % (11.0-15.5); WHITE BLOOD COUNT (AUTO) 6.1 K/uL (4.8-10.8)
[2020-04-13 04:32] LABS: ALBUMIN 1.6 g/dL (3.5-5.0); BILIRUBIN,TOTAL 1.1 mg/dL (0.2-1.0); CREATININE 3.3 mg/dL (0.5-1.5); CRP QUANTITATIVE 67.4 mg/L (0.00-9.0); POTASSIUM 4.3 mmol/L (3.5-5.1); TOTAL PROTEIN, SERUM 5.2 g/dL (6.0-8.3)
[2020-04-13] MEDS ORDERED: INSULIN HUMULIN R 100 UNIT/ML 3ML ONE ×4 (05:41→20:51)
[2020-04-13] MEDS: INSULIN HUMULIN R 100 UNIT/ML 3ML SQ SCH ×2 (05:57→21:03)
[2020-04-13] MEDS: ASCORBIC ACID 500 MG TAB PO SCH (09:00)
[2020-04-13] MEDS ORDERED: EPOETIN ALFA 10,000 UNIT/ML VIAL SQ SCH (10:45)
[2020-04-13] MEDS ORDERED: HEPARIN SODIUM 5000UNIT/ML 1ML VIAL ONE ×2 (11:10→20:23)
[2020-04-13] MEDS ORDERED: ASCORBIC ACID 500 MG TAB ONE (11:10)
[2020-04-13] MEDS ORDERED: FUROSEMIDE 10 MG/ML 4ML VIAL ONE ×2 (11:10→20:51)
[2020-04-13] MEDS ORDERED: METHYLPREDNISOLONE SOD SUCC 40MG/ML 1ML ONE ×3 (11:27→22:34)
[2020-04-13] MEDS ORDERED: BENZONATATE 100 MG CAPSULE PO ONE ×2 (11:28→20:23)
--- NOTE | 2020-04-13 13:18 | NUR ---
INITIAL SW spoke with patient's spouse, Alexey Nuno, [phone]. Patient has [facility] once every 3 days. No PHC. DME: BPM, glucometer (uses insulin), shower chair, cane, walking stick, wheelchair, standard walker, nebulizer. Patient is independent and drives. PCP is Dr. Ortega. Pharmacy is [facility] in [place]. DCP is home. Addendum: 04/13/20 at 1321 by GEGE HENRY SS Amended: Links added.
[2020-04-13] MEDS: METHYLPREDNISOLONE SOD SUCC 40MG/ML 1ML IVP SCH ×2 (14:00→22:39)
[2020-04-13 20:00] VITALS: BP 186/86
[2020-04-13] MEDS: ACETYLCYSTEINE 600 MG CAPSULE PO SCH (20:29)
[2020-04-13] MEDS: BENZONATATE 100 MG CAPSULE PO SCH (20:30)
[2020-04-13] MEDS: HEPARIN SODIUM 5000UNIT/ML 1ML VIAL SQ SCH (20:42)
[2020-04-13] MEDS: FUROSEMIDE 10 MG/ML 4ML VIAL IV SCH (20:56)
[2020-04-13 22:00] VITALS: BP 160/70
[2020-04-14] MEDS: LACTULOSE 20 GM/30 ML UDCUP PO SCH ×5 (00:45→17:34)
[2020-04-14 00:46] VITALS: BP 174/84
[2020-04-14] MEDS ORDERED: CEFTRIAXONE SODIUM 1 GM ONE ×2 (01:18→13:41)
[2020-04-14] MEDS ORDERED: LACTULOSE 20 GM/30 ML UDCUP ONE ×3 (01:18→13:40)
[2020-04-14] MEDS: CEFTRIAXONE SODIUM 1 GM IVP SCH ×2 (01:21→13:00)
[2020-04-14] MEDS ORDERED: HYDRALAZINE HCL 20 MG/ML VIAL ONE ×2 (03:51→13:40)
[2020-04-14 03:53] VITALS: BP 184/84
[2020-04-14 04:27] VITALS: BP 156/71
[2020-04-14 06:08] LABS: HEMATOCRIT 27.4 % (42-54); LYMPHOCYTES % (AUTO) 5.3 % (21.0-51.0); MEAN CORPUSCULAR HEMOGLOBIN 33.1 pg (27.0-33.0); MEAN CORPUSCULAR HGB CONC 33.6 g/dL (32.0-36.0); MEAN CORPUSCULAR VOLUME 98.6 fL (79-99); MONOCYTES % (AUTO) 1.9 % (3.0-13.0); NEUTROPHILS % (AUTO) 91.5 % (40.0-77.0); PLATELET COUNT (AUTO) 84 K/uL (130-400); RED BLOOD CELL COUNT(AUTO) 2.78 MIL/uL (4.50-6.20); RED CELL DISTRIBUTION WIDTH 14.8 % (11.0-15.5); WHITE BLOOD COUNT (AUTO) 12.4 K/uL (4.8-10.8)
[2020-04-14] MEDS ORDERED: INSULIN HUMULIN R 100 UNIT/ML 3ML ONE (06:21)
[2020-04-14] MEDS: INSULIN HUMULIN R 100 UNIT/ML 3ML SQ SCH ×3 (06:27→16:30)
[2020-04-14 06:28] LABS: ALBUMIN 1.8 g/dL (3.5-5.0); BILIRUBIN,TOTAL 0.8 mg/dL (0.2-1.0); CREATININE 3.1 mg/dL (0.5-1.5); CRP QUANTITATIVE 57.4 mg/L (0.00-9.0); POTASSIUM 4.1 mmol/L (3.5-5.1); TOTAL PROTEIN, SERUM 5.6 g/dL (6.0-8.3)
[2020-04-14 08:00] VITALS: BP 154/68
[2020-04-14] MEDS: HEPARIN SODIUM 5000UNIT/ML 1ML VIAL SQ SCH ×3 (09:00→14:00)
[2020-04-14] MEDS ORDERED: DOXYCYCLINE HYCLATE 100 MG TABLET PO ONE (09:17)
[2020-04-14] MEDS ORDERED: FUROSEMIDE 10 MG/ML 2ML VIAL ONE (09:17)
[2020-04-14] MEDS ORDERED: ASCORBIC ACID 500 MG TAB ONE (09:17)
[2020-04-14] MEDS ORDERED: METHYLPREDNISOLONE SOD SUCC 40MG/ML 1ML ONE (09:17)
[2020-04-14] MEDS ORDERED: BENZONATATE 100 MG CAPSULE PO ONE (09:18)
[2020-04-14] MEDS: METHYLPREDNISOLONE SOD SUCC 40MG/ML 1ML IVP SCH ×2 (10:29→11:56)
[2020-04-14] MEDS: ASCORBIC ACID 500 MG TAB PO SCH (10:31)
[2020-04-14] MEDS: BENZONATATE 100 MG CAPSULE PO SCH ×2 (10:31→11:56)
[2020-04-14] MEDS: DOXYCYCLINE HYCLATE 100 MG TABLET PO SCH (10:31)
[2020-04-14] MEDS: FUROSEMIDE 10 MG/ML 4ML VIAL IV SCH (10:31)
[2020-04-14] MEDS: ACETYLCYSTEINE 600 MG CAPSULE PO SCH (10:32)
[2020-04-14] MEDS ORDERED: SODI650T PO (11:18)
[2020-04-14 12:00] VITALS: BP 154/58
--- NOTE | 2020-04-14 14:35 | NUR ---
phone call family notified
--- NOTE | 2020-04-14 16:34 | NUR ---
HOME WITH EXISTING HOME HEALTH- CM ATTEMPTED TO CONTACT [facility]- (DOCUMENTED THE HOME HEALTH BY ROSIBEL YESTERDAY) NO CONTACT NUMBERS IN NOTES ANSWERING SERVICE, ++ TIME ON HOLD. WILL CALL IN AM AND SEND/FAX INFO IF NEEDED. ADVISED RN TO ENSURE PATIENT FOLLOWS UP WITH PRIMARY Addendum: 04/14/20 at 1642 by JOSE M GONZALEZ RN CM Amended: Links added.
== END 2020-04-14 18:00 | disposition home health service (06) | DRG 441 ==
LOC: EDH 08:47 → EDHIP 12:49
PROVIDERS: ADMIT Family Medicine; ATTEND Family Medicine
DX: K72.90 Hepatic failure, unspecified without coma (principal); J96.01 Acute respiratory failure with hypoxia; K76.7 Hepatorenal syndrome; E43 Unspecified severe protein-calorie malnutrition; N17.9 Acute kidney failure, unspecified; N18.4 Chronic kidney disease, stage 4 (severe); J90 Pleural effusion, not elsewhere classified; K76.6 Portal hypertension; J98.11 Atelectasis; E11.22 Type 2 diabetes mellitus with diabetic chronic kidney disease; I12.9 Hypertensive chronic kidney disease with stage 1 through stage 4 chronic kidney disease, or unspecified chronic kidney disease; K74.60 Unspecified cirrhosis of liver; R53.81 Other malaise; E78.5 Hyperlipidemia, unspecified; D63.8 Anemia in other chronic diseases classified elsewhere; E87.5 Hyperkalemia; Z20.828 Contact with and (suspected) exposure to other viral communicable diseases; Z83.3 Family history of diabetes mellitus; Z82.49 Family history of ischemic heart disease and other diseases of the circulatory system
CPT/HCPCS: 0099U; 36415; 36600; 70450; 71045; 71250; 80053; 82140; 82150; 82435; 82550; 82728; 82803; 82947; 82948; 83540; 83550; 83605; 83615; 83690; 84132; 84145; 84295; 84484; 85018; 85025; 85378; 85610; 85730; 86140; 87804; 93005; 99291; G0378; J0360; J0696; J0885; J1644; J1815; J1940; J2920; U0003